=== PATIENT | female | born 1975 | race Caucasian/White ===

== ENCOUNTER 2016-11-09 13:43 | Emergency (ER) | payer BC ==
--- NOTE | 2016-11-19 00:50 | ER ---
ADMIT: 11/09/2016 RM/LOC: ER [facility] MR#: [id number] [address] [id number] MANISHA VAZQUEZ [address] [place] [address] Emergency Room Report SEX: F AGE: 40 : 1975 DATE: 11/09/2016 ADDENDUM: Regular physician is Dr. Owusu. SUBJECTIVE: This patient comes to the ER because she is having chest pain that started 2 hours ago. It started suddenly. It hurts on the left side of her chest when she moves or touches that area and seems to go in the left side of her back. She denies any shortness of breath. On physical examination, this is an alert, obese 40-year-old white female. I am able to reproduce the pain with palpation. Her chest x-ray was normal. EKG showed a normal sinus rhythm, and her cardiac enzymes were normal, and her D-dimer was within normal limits as well. She was given Toradol 60 mg IM. I wrote a prescription for meloxicam, and we will have her follow up with her primary in the next few days if not feeling better. Return to the ER if any difficulty breathing. MICHAEL Lewis / Calin Jackman MD / chivol JOB #: [id number] CC: Calin Jackman MD, Attending Physician Manny Owusu MD, Family Physician
== END 2016-11-09 15:50 | disposition home or self-care (01) ==
LOC: ER 13:43
DX: R07.89 Other chest pain (principal); Z79.899 Other long term (current) drug therapy; Z90.49 Acquired absence of other specified parts of digestive tract